=== PATIENT | male | born 1990 | race Hispanic/Latino ===

== ENCOUNTER 2022-06-12 16:24 | Emergency (ER) | payer OTHER, SELFPAY ==
[2022-06-12] MEDS ORDERED: ADENOSINE 6 MG/ 2ML VIAL IV ONE (16:25)
[2022-06-12 16:56] LABS: Absolute Lymphocytes (CBC) 3.2 K/uL (0.7-4.9); Hematocrit 44.8 % (39.6-49.0); MCV 86.2 fL (80-100); MPV 10.3 fL (7.6-11.3)
[2022-06-12 17:21] LABS: Potassium 3.8 mmol/L (3.5-5.1); Thyroid Stimulating Hormone 0.836 uIU/mL (0.360-3.740); Troponin High Sensitivity 5.5 pg/mL (<58.9)
--- NOTE | 2022-06-12 17:53 | RAD REPORT ---
EXAM DESCRIPTION: RAD - Chest Single View - 06/12/2022 5:46 pm CLINICAL HISTORY: Chest pain. COMPARISON: Chest Single View dated 08/21/2017 FINDINGS: Portable technique limits examination quality. The lungs are grossly clear. The heart is normal in size. No displaced fractures. IMPRESSION: No acute intrathoracic process suspected.
--- NOTE | 2022-06-12 18:56 | EDPHYS ---
[facility] Name: Stephane Suarez Age: 31 yrs Sex: Male : 1990 Arrival Date: 06/12/2022 Time: 16:26 Bed 14 Private MD: Manas Aleman ED Physician Moy Blount HPI: 06/12 17:52 This 31 yrs old Male presents to ER via Ambulatory with complaints of jl9 Palpitations, sweating, Blurred Vision, Near Syncope. 17:52 The patient presents with a history of heart racing. Context: The symptoms occur jl9 without known cause. Onset: The symptoms/episode began/occurred suddenly, just prior to arrival. Duration: The patient or guardian reports a single episode. Modifying factors: The symptoms are aggravated by nothing. The symptoms are alleviated by nothing. Associated signs and symptoms: Pertinent negatives: chest pain. Historical: - Allergies: 16:40 No Known Allergies; ap3 - Home Meds: 16:40 None [Active]; ap3 - PMHx: 16:40 scoliosis; ap3 - Immunization history:: Client reports receiving the 2nd dose of the Covid vaccine. - Social history:: Smoking status: Patient denies any tobacco usage or history of. Patient uses alcohol, occasionally. street drugs, marijuana. ROS: 17:53 Constitutional: Negative for fever, chills, and weight loss, Eyes: Negative for injury, jl9 pain, redness, and discharge, ENT: Negative for injury, pain, and discharge, Neck: Negative for injury, pain, and swelling. 17:53 Respiratory: Negative for shortness of breath, cough, wheezing, and pleuritic chest pain, Abdomen/GI: Negative for abdominal pain, nausea, vomiting, diarrhea, and constipation, Back: Negative for injury and pain, MS/Extremity: Negative for injury and deformity, Skin: Negative for injury, rash, and discoloration, Neuro: Negative for headache, weakness, numbness, tingling, and seizure, Psych: Negative for depression, anxiety, suicide ideation, homicidal ideation, and hallucinations, Allergy/Immunology: Negative for hives, rash, and allergies, Endocrine: Negative for neck swelling, polydipsia, polyuria, polyphagia, and marked weight changes, Hematologic/Lymphatic: Negative for swollen nodes, abnormal bleeding, and unusual bruising. 17:53 Cardiovascular: Positive for palpitations. Exam: 17:53 Constitutional: This is a well developed, well nourished patient who is awake, alert, jl9 and in no acute distress. Head/Face: Normocephalic, atraumatic. Eyes: Pupils equal round and reactive to light, extra-ocular motions intact. Lids and lashes normal. Conjunctiva and sclera are non-icteric and not injected. Cornea within normal limits. Periorbital areas with no swelling, redness, or edema. ENT: Mucous membranes moist. Neck: Trachea midline, no thyromegaly or masses palpated, and no cervical lymphadenopathy. Supple, full range of motion without nuchal rigidity, or vertebral point tenderness. No Meningismus. 17:53 Respiratory: Lungs have equal breath sounds bilaterally, clear to auscultation and percussion. No rales, rhonchi or wheezes noted. No increased work of breathing, no retractions or nasal flaring. Abdomen/GI: Soft, non-tender, with normal bowel sounds. No distension or tympany. No guarding or rebound. No evidence of tenderness throughout. Back: No spinal tenderness. No costovertebral tenderness. Full range of motion. Skin: Warm, dry with normal turgor. Normal color with no rashes, no lesions, and no evidence of cellulitis. MS/ Extremity: Pulses equal, no cyanosis. Neurovascular intact. Full, normal range of motion. Neuro: Awake and alert, GCS 15, oriented to person, place, time, and situation. Cranial nerves II-XII grossly intact. Motor strength 5/5 in all extremities. Sensory grossly intact. Cerebellar exam normal. Normal gait. Psych: Awake, alert, with orientation to person, place and time. Behavior, mood, and affect are within normal limits. 17:53 Chest/axilla: Inspection: normal, Palpation: is normal, Axilla: Vital Signs: 16:26 BP 96 / 67; Pulse 208; Resp 19; Temp 97.6; Pulse Ox 100% on R/A; Pain 0/10; tp1 16:36 Pulse 105; tp1 16:39 Pulse 208; Resp 19; Temp 97.6; Weight 90.72 kg; Height 6 ft. 3 in. (190.50 cm); ap3 16:39 BP 132 / 87; Pulse 89; Resp 19; Pulse Ox 100% on 2 lpm NC; jg9 17:30 BP 128 / 86; Pulse 81; Resp 12 S; Pulse Ox 100% on 2 lpm NC; Pain 0/10; jg9 18:00 BP 127 / 83; Pulse 78; Resp 14 S; Pulse Ox 100% on 2 lpm NC; jg9 18:45 BP 124 / 94; Pulse 65; Resp 12 S; Pulse Ox 100% on 2 lpm NC; jg9 16:39 Body Mass Index 25.00 (90.72 kg, 190.50 cm) ap3 MDM: 16:27 Test interpretation: by ED physician or midlevel provider: ECG, SVT 201 BPM. jl9 16:27 Test interpretation: by ED physician or midlevel provider: ECG, NSR 88 BPM. jl9 16:28 Patient medically screened. jl9 18:54 Differential diagnosis: arrythmia. Data reviewed: vital signs, nurses notes, lab test [facility] result[facility]), EKG. Counseling: I had a detailed discussion with the patient and/or guardian regarding: the historical points, exam findings, and any diagnostic results supporting the discharge/admit diagnosis, the need for outpatient follow up, to return to the emergency department if symptoms worsen or persist or if there are any questions or concerns that arise at home, Patient agrees to follow up with PCP and cardiology. . 06/12 16:32 Order name: Basic Metabolic Panel; Complete Time: 17:54 [facility] 06/12 16:32 Order name: CBC with Diff; Complete Time: 17:54 [facility] 06/12 16:32 Order name: Troponin HS; Complete Time: 17:54 06/12 16:32 Order name: XRAY Chest (1 view); Complete Time: 17:54 06/12 16:32 Order name: TSH; Complete Time: 17:54 06/12 16:32 Order name: EKG; Complete Time: 16:33 06/12 16:32 Order name: Cardiac monitoring; Complete Time: 16:42 06/12 16:32 Order name: EKG - Nurse/Tech; Complete Time: 16:42 [facility] 06/12 16:32 Order name: IV Saline Lock; Complete Time: 16:42 06/12 16:32 Order name: Labs collected and sent; Complete Time: 16:42 jl9 06/12 16:32 Order name: O2 Per Protocol; Complete Time: 16:42 jl9 06/12 16:32 Order name: O2 Sat Monitoring; Complete Time: 16:42 jl9 Administered Medications: 16:35 Drug: Adenocard (adenosine) 6 mg Route: IVP; Site: left antecubital; tp1 17:08 Follow up: Response: No adverse reaction; Cardiac rhythm changed jg9 Disposition Summary: 06/12/22 18:56 Discharge Ordered Location: Home jl9 Condition: Stable jl9 Diagnosis - Supraventricular tachycardia jl9 Followup: jl9 - With: Private Physician - When: 1 - 2 days - Reason: Recheck today's complaints, Continuance of care, Re-evaluation by your physician Discharge Instructions: - Discharge Summary Sheet jl9 - Supraventricular Tachycardia, Adult, [id number] jl9 Forms: - Medication Reconciliation Form jl9 - Thank You Letter jl9 - Antibiotic Education jl9 - Prescription Opioid Use jl9 Prescriptions: - Metoprolol Tartrate 25 mg Oral Tablet - take 1 tablet by ORAL route 2 times per day with a meal; 60 tablet; Refills: 0, jl9 Product Selection Permitted Signatures: Dispatcher [employer] Fernanda Choe RN RN ap3 Lucretia Diaz RN RN [email or web address] Michael Aguilar jl9 Shara Jensen RN jg9
--- NOTE | 2022-06-12 18:56 | ER ---
Nurse's Notes [facility] Name: Stephane Suarez Age: 31 yrs Sex: Male : 1990 Arrival Date: 06/12/2022 Time: 16:26 Bed 14 Private MD: Manas Aleman Diagnosis: Supraventricular tachycardia Presentation: 06/12 16:39 Chief complaint: Patient states[place] and felt like his heart was racing, ap3 and he began sweating. patient states that he also started getting a white-like tunnel vision at that time as well. patient presents to the ED diaphoretic. Coronavirus screen: At this time, the client does not indicate any symptoms associated with coronavirus-19. Ebola Screen: No symptoms or risks identified at this time. Initial Sepsis Screen: Does the patient meet any 2 criteria? No. Patient's initial sepsis screen is negative. Does the patient have a suspected source of infection? No. Patient's initial sepsis screen is negative. Risk Assessment: Do you want to hurt yourself or someone else? Patient reports no desire to harm self or others. Onset of symptoms was June 12, 2022. 16:39 Method Of Arrival: Ambulatory ap3 16:39 Acuity: KYLER 2 ap3 Triage Assessment: 16:41 General: Appears distressed, Behavior is calm. Pain: Denies pain. Neuro: Level of ap3 Consciousness is awake, alert, obeys commands, Oriented to person, place, time, situation, Gait is steady, Speech is normal. Cardiovascular: Reports diaphoresis, lightheadedness, palpitations. Respiratory: Airway is patent Respiratory effort is even, unlabored. Derm: Skin is diaphoretic. Historical: - Allergies: 16:40 No Known Allergies; ap3 - Home Meds: 16:40 None [Active]; ap3 - PMHx: 16:40 scoliosis; ap3 - Immunization history:: Client reports receiving the 2nd dose of the Covid vaccine. - Social history:: Smoking status: Patient denies any tobacco usage or history of. Patient uses alcohol, occasionally. street drugs, marijuana. Screenin:26 Fall Risk IV access (20 points). Ambulatory Aid- None/Bed Rest/Nurse Assist (0 pts). tp1 Gait- Normal/Bed Rest/Wheelchair (0 pts) Mental Status- Oriented to own ability (0 pts). Total Graves Fall Scale indicates No Risk (0-24 pts). 16:42 Abuse screen: Denies threats or abuse. Nutritional screening: No deficits noted. ap3 Tuberculosis screening: No symptoms or risk factors identified. Assessment: 16:26 General: Appears distressed, uncomfortable, Behavior is cooperative, anxious. Pain: tp1 Denies pain. Neuro: Level of Consciousness is awake, alert, obeys commands, Oriented to person, place, time, situation. Neuro: Pupils are PERRLA, Reports blurred vision headache. Cardiovascular: Reports diaphoresis, lightheadedness, nausea, palpitations, Denies chest pain, Capillary refill < 3 seconds pale, cool and clammy . Respiratory: Airway is patent Respiratory effort is even, unlabored. GI: Abdomen is flat, non-distended, Reports nausea, Patient currently denies diarrhea. : No signs and/or symptoms were reported regarding the genitourinary system. EENT: No signs and/or symptoms were reported regarding the EENT system. Derm: Skin is clammy, diaphoretic, Skin is pale. Musculoskeletal: Circulation, motion, and sensation intact. 16:33 Reassessment: AED pads applied. tp1 16:50 Reassessment: Patient appears in no apparent distress at this time. Patient is alert, tp1 oriented x 3, equal unlabored respirations, skin warm/dry/pink. states feeling better. denies chest pain. 17:00 Reassessment: No changes from previously documented assessment. Patient is alert, jg9 oriented x 3, equal unlabored respirations, skin warm/dry/pink. patient responded to 6mg Adenocard for SVT-vs have remained stable since the rate converted, patient resting in bed, no obvious distress. 18:00 Reassessment: Patient and/or family updated on plan of care and expected duration. Pain jg9 level reassessed. Patient is alert, oriented x 3, equal unlabored respirations, skin warm/dry/pink. Patient states feeling better. Vital Signs: 16:26 BP 96 / 67; Pulse 208; Resp 19; Temp 97.6; Pulse Ox 100% on R/A; Pain 0/10; tp1 16:36 Pulse 105; tp1 16:39 Pulse 208; Resp 19; Temp 97.6; Weight 90.72 kg; Height 6 ft. 3 in. (190.50 cm); ap3 16:39 BP 132 / 87; Pulse 89; Resp 19; Pulse Ox 100% on 2 lpm NC; jg9 17:30 BP 128 / 86; Pulse 81; Resp 12 S; Pulse Ox 100% on 2 lpm NC; Pain 0/10; jg9 18:00 BP 127 / 83; Pulse 78; Resp 14 S; Pulse Ox 100% on 2 lpm NC; jg9 18:45 BP 124 / 94; Pulse 65; Resp 12 S; Pulse Ox 100% on 2 lpm NC; jg9 16:39 Body Mass Index 25.00 (90.72 kg, 190.50 cm) ap3 ED Course: 16:26 Patient arrived in ED. ap3 16:27 Manas Aleman MD is Private Physician. am2 16:28 Michael [facility]. jl9 16:28 Moy Blount MD is Attending Physician. jl9 16:30 Inserted saline lock: 18 gauge in right antecubital area, using aseptic technique. tp1 16:30 Inserted saline lock: 18 gauge in left antecubital area, using aseptic technique. Blood tp1 collected. 16:40 Triage completed. ap3 16:42 Shara Jensen, RN is Primary Nurse. jg9 16:42 Arm band placed on right wrist. ap3 16:42 Patient has correct armband on for positive identification. Bed in low position. Call ap3 light in reach. Side rails up X 1. Adult w/ patient. cow washer on. Pulse ox on. NIBP on. 16:44 EKG done, by ED staff, reviewed by Michael Aguilar. mb7 17:48 XRAY Chest (1 view) In Process Unspecified. EDMS 18:59 No provider procedures requiring assistance completed. jg9 18:59 IV discontinued. jg9 Administered Medications: 16:35 Drug: Adenocard (adenosine) 6 mg Route: IVP; Site: left antecubital; tp1 17:08 Follow up: Response: No adverse reaction; Cardiac rhythm changed jg9 Medication: 16:26 VIS not applicable for this client. tp1 Outcome: 18:56 Discharge ordered by . jl9 18:59 Condition: improved jg9 19:05 Discharged to home ambulatory. jg9 19:05 Discharge instructions given to patient, Instructed on discharge instructions, follow up and referral plans. Demonstrated understanding of instructions, follow-up care, Prescriptions given X 1. 19:05 Patient left the ED. jg9 Signatures: Dispatcher [employer] EDMS Fernanda Barker am2 Fernanda Sadler, RN JACK [email or web address] Lucretia Diaz RN RN tp1 Brittany Staley 7 Shara Jensen RN RN jg9 Michael Aguilar 9 Corrections: (The following items were deleted from the chart) 16:55 16:26 Inserted saline lock: 18 gauge in right antecubital area, using aseptic tp1 technique. tp1 16:58 16:43 General: Appears in no apparent distress. uncomfortable, Behavior is cooperative, tp1 anxious, tp1 16:58 16:43 Pain: Denies pain. tp1 tp1 16:58 16:43 Neuro: Level of Consciousness is awake, alert, obeys commands, Oriented to tp1 person, place, time, situation, tp1 16:58 16:43 Cardiovascular: Reports diaphoresis, lightheadedness, nausea, palpitations, tp1 Denies chest pain, Capillary refill < 3 seconds pale, cool and clammy . tp1 16:58 16:43 Neuro: Pupils are PERRLA, Reports blurred vision headache tp1 tp1 16:58 16:43 Respiratory: Airway is patent Respiratory effort is even, unlabored, tp1 tp1 16:58 16:43 GI: Abdomen is flat, non-distended, Reports nausea, Patient currently denies tp1 diarrhea, tp1 16:58 16:43 : No signs and/or symptoms were reported regarding the genitourinary system. tp1tp1 16:58 16:43 EENT: No signs and/or symptoms were reported regarding the EENT system. tp1 tp1 16:58 16:43 Derm: Skin is clammy, diaphoretic, Skin is pale, tp1 tp1 16:58 16:43 Musculoskeletal: Circulation, motion, and sensation intact. tp1 tp1 18:11 16:39 BP 132 / 87; Pulse 89bpm; Resp 19bpm; Pulse Ox 100% RA; tp1 jg9 18:11 17:30 BP 128 / 86; Pulse 81bpm; Resp 12bpm; Spontaneous; Pulse Ox 100% RA; Pain 0/10; jg9 jg9
[2022-06-12 19:54] VITALS: TEMP 97.6; O2SAT 100
[2022-06-12 20:05] VITALS: BP 124/94
--- NOTE | 2022-06-14 13:48 | EKG ---
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
--- NOTE | 2022-06-14 13:48 | EKG ---
Test Date: 2022-06-12 Test Time: 16:35:46 [place]: MEASUREMENT RESULTS: Intervals: Rate: 88 OH: 148 QRSD: 90 QT: 354 QTc: 428 [place]: P: 71 OH: 148 QRS: 83 T: 53 INTERPRETIVE STATEMENTS: Normal sinus rhythm Nonspecific ST abnormality Abnormal ECG Compared to ECG 06/12/2022 16:27:15 Supraventricular tachycardia no longer present ST (T wave) deviation still present Electronically Signed On 06-14-22 13:44:15 CDT by Uriel Garces
== END 2022-06-12 19:05 | disposition home or self-care (01) ==
LOC: ER 16:24
DX: I47.1 Supraventricular tachycardia (principal)
CPT/HCPCS: 36415; 71045; 80048; 84443; 84484; 85025; 93005; 96374; 99285; J0153